=== PATIENT | female | born 2000 | race African-American/Black ===

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

== ENCOUNTER 2021-04-09 18:33 | Emergency (ER) | payer OTHER ==
[~2021-04-09 18:33] MED LIST changes: +LOVENOX SY80 MG/0.8 SQ; +MACROBID 100 M100 MG PO; +NORCO 5-325 TA1 EACH PO; +TERAZOL 745 GM PV
[2021-04-09 20:02] LABS: RED BLOOD COUNT 4.43 M/UL (4.00-5.10); WHITE BLOOD COUNT 13.7 K/UL (4.5-11.0)
[2021-04-09 20:17] LABS: BUN/CREATININE RATIO 6 (0-10)
[2021-04-09] MEDS ORDERED: REGLAN10 MG PO (21:28)
[2021-04-09] MEDS ORDERED: MACROBID 100 M100 MG PO (21:28)
[2021-04-09] MEDS ORDERED: BENTYL 20MG TAB20 MG PO (21:28)
== END 2021-04-09 21:32 | disposition home or self-care (01) ==
LOC: ER1 18:33
PROVIDERS: Physician Assistant
DX: O23.41 Unspecified infection of urinary tract in pregnancy, first trimester (principal); O99.511 Diseases of the respiratory system complicating pregnancy, first trimester; J45.909 Unspecified asthma, uncomplicated; Z88.1 Allergy status to other antibiotic agents; Z91.041 Radiographic dye allergy status; Z79.899 Other long term (current) drug therapy; O99.891 Other specified diseases and conditions complicating pregnancy; R73.9 Hyperglycemia, unspecified
CPT/HCPCS: 71045; 80053; 81001; 85025; 85379; 85610; 85730; 87086; 99284

== ENCOUNTER 2021-06-03 21:51 | Emergency (ER) | payer OTHER ==
[~2021-06-03 21:51] MED LIST changes: +BENTYL 20MG TAB20 MG PO; +REGLAN10 MG PO
[2021-06-03 22:31] LABS: HEMOGLOBIN 12.4 gm/dl (12.3-15.3); RED BLOOD COUNT 4.26 M/UL (4.00-5.10); WHITE BLOOD COUNT 12.5 K/UL (4.5-11.0)
[2021-06-03 22:49] LABS: BUN/CREATININE RATIO 16 (0-10)
[2021-06-04] MEDS ORDERED: OMNICEF 300 MG300 MG PO (01:24)
[2021-06-04] MEDS ORDERED: REGLAN10 MG PO (01:24)
== END 2021-06-04 01:27 | disposition home or self-care (01) ==
LOC: ER1 21:51
PROVIDERS: Physician Assistant
DX: O99.891 Other specified diseases and conditions complicating pregnancy (principal); R51.9 Headache, unspecified; O21.9 Vomiting of pregnancy, unspecified; O23.42 Unspecified infection of urinary tract in pregnancy, second trimester; Z91.041 Radiographic dye allergy status; Z3A.16 16 weeks gestation of pregnancy
CPT/HCPCS: 80053; 81001; 83735; 85025; 87086; 99284

== ENCOUNTER → 2021-08-29 | Outpatient (CLI) | payer OTHER ==
[~2021-08-29] MED LIST changes: +OMNICEF 300 MG300 MG PO
== END ==
LOC: GENOP 20:08
DX: O47.03 False labor before 37 completed weeks of gestation, third trimester (principal); O36.8130 Decreased fetal movements, third trimester, not applicable or unspecified; O99.333 Smoking (tobacco) complicating pregnancy, third trimester; F17.210 Nicotine dependence, cigarettes, uncomplicated; Z3A.28 28 weeks gestation of pregnancy
CPT/HCPCS: 59025; 81001; 82731

== ENCOUNTER 2021-10-13 21:03 | Outpatient (CLI) | payer OTHER | END 2021-10-13 23:05 | disposition home or self-care (01) | LOC: GENOP 21:03 | DX: O47.9 False labor, unspecified (principal); O26.893 Other specified pregnancy related conditions, third trimester; E86.9 Volume depletion, unspecified; Z3A.34 34 weeks gestation of pregnancy | CPT/HCPCS: 81001; 82731; 83518; 96372 ==

== ENCOUNTER 2021-10-29 10:07 | Outpatient (CLI) | payer OTHER | END 2021-10-29 11:52 | disposition home or self-care (01) | LOC: GENOP 10:07 | DX: O99.891 Other specified diseases and conditions complicating pregnancy (principal); O99.013 Anemia complicating pregnancy, third trimester; O99.353 Diseases of the nervous system complicating pregnancy, third trimester; R10.2 Pelvic and perineal pain; D64.9 Anemia, unspecified; G43.909 Migraine, unspecified, not intractable, without status migrainosus; Z3A.36 36 weeks gestation of pregnancy | CPT/HCPCS: G0463 ==

== ENCOUNTER 2021-11-13 16:39 | Inpatient (IN) | payer OTHER ==
[~2021-11-13] VITALS: Ht 172.7 cm; Wt 106.6 kg
[2021-11-13] MEDS ORDERED: COLACE100 MG PO (19:05)
[2021-11-13] MEDS ORDERED: FEROSUL325 MG PO (19:06)
[2021-11-14 00:23] LABS: RED BLOOD COUNT 4.01 M/UL (4.00-5.10); WHITE BLOOD COUNT 20.1 K/UL (4.5-11.0)
[2021-11-14] MEDS ORDERED: COLACE100 MG PO (12:38)
[2021-11-14] MEDS ORDERED: HEMOCYTE324 MG PO (12:38)
[2021-11-14] MEDS ORDERED: PERCOCET 5/325 T1 EA PO (12:38)
[2021-11-14] MEDS ORDERED: BACTRIM DS TAB1 EACH PO (12:40)
[2021-11-15 04:47] LABS: HEMOGLOBIN 10.4 gm/dl (12.3-15.3)
[2021-11-15] MEDS ORDERED: ENOXAPARIN40 MG/0.4 SC (11:09)
== END 2021-11-15 17:04 | disposition home or self-care (01) | DRG 807 ==
LOC: OB 16:39
PROVIDERS: Obstetrics & Gynecology; ADMIT Obstetrics & Gynecology
PROC: 10E0XZZ Delivery of Products of Conception, External Approach (ICD-10-PCS; principal; 2021-11-13)
PROC: 4A1HXCZ Monitoring of Products of Conception, Cardiac Rate, External Approach (ICD-10-PCS; 2021-11-13)
DX: O99.334 Smoking (tobacco) complicating childbirth (principal); Z37.0 Single live birth; Z3A.38 38 weeks gestation of pregnancy; Z20.822 Contact with and (suspected) exposure to COVID-19; F17.210 Nicotine dependence, cigarettes, uncomplicated; Z88.1 Allergy status to other antibiotic agents; O99.02 Anemia complicating childbirth; D64.9 Anemia, unspecified; Z91.041 Radiographic dye allergy status; Z91.018 Allergy to other foods; Z98.890 Other specified postprocedural states; Z86.59 Personal history of other mental and behavioral disorders; Z87.442 Personal history of urinary calculi; Z86.718 Personal history of other venous thrombosis and embolism; Z79.01 Long term (current) use of anticoagulants; Z82.49 Family history of ischemic heart disease and other diseases of the circulatory system; Z81.8 Family history of other mental and behavioral disorders; Z83.3 Family history of diabetes mellitus
CPT/HCPCS: 36415; 80307; 81001; 85014; 85018; 85025; 85610; 85730; J0696; J1650; J2590; J7120